=== PATIENT | female | born 1995 ===

== ENCOUNTER 2024-01-06 23:45 | Emergency (ER) | payer OTHER, SELFPAY ==
[2024-01-07 00:08] VITALS: BP 131/86; PULSE 94; RESP 20; TEMP 35.9; O2SAT 97; BMI 47.0
== END 2024-01-07 01:34 | disposition left against medical advice (07) ==
PROVIDERS: Emergency Provider Emergency Medicine
DX: R53.83 Other fatigue (principal); T40.495A Adverse effect of other synthetic narcotics, initial encounter; Y92.9 Unspecified place or not applicable; Z53.21 Procedure and treatment not carried out due to patient leaving prior to being seen by health care provider
CPT/HCPCS: 99281